=== PATIENT | male | born 1970 | race Caucasian/White ===

== ENCOUNTER → 2024-08-07 | Outpatient (CLI) | payer OTHER, SELFPAY ==
--- NOTE | 2024-08-07 11:14 | RAD_ITS ---
HISTORY: RT POSTERIOR KNEE PAIN X 1 YR NKI. TECHNIQUE: XR Knee Complete 4 Views or More. COMPARISON: None. FINDINGS: BONES : No acute fracture identified. Small patellar osteophytes present. JOINTS: No dislocation. Joint spaces maintained. SOFT TISSUES: Vascular calcifications present. RAD/Knee 4 or More Views IMPRESSION: No acute fracture or dislocation identified in the right knee. Electronically Signed: Martha Power MD at 8:30 EDT ,
== END | disposition home or self-care (01) ==
LOC: RAD 11:10
PROVIDERS: PCP Family Medicine; Referring Provider Family Medicine; Visit Provider Family Medicine
DX: M25.561 Pain in right knee (principal)
CPT/HCPCS: 73564